=== PATIENT | male | born 1995 | race Hispanic/Latino ===

== ENCOUNTER 2017-05-09 00:37 | Emergency (ER) | payer OTHER ==
[~2017-05-09] VITALS: Ht 177.8 cm; Wt 79.5 kg
[2017-05-09 00:48] VITALS: BP 130/72
[2017-05-09] MEDS ORDERED: CEFD1CAP8 PO (01:46)
== END 2017-05-09 02:16 | disposition home or self-care (01) ==
LOC: M ED 00:37
DX: J01.90 Acute sinusitis, unspecified (principal)

== ENCOUNTER 2019-06-10 02:19 | Emergency (ER) | payer OTHER ==
[~2019-06-10] VITALS: Ht 177.8 cm; Wt 84.0 kg
[~2019-06-10 02:19] MED LIST: CEFD1CAP8 PO
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
[2019-06-10] MEDS ORDERED: ACETAMINOPHEN TAB 650MG DOSE (2X325MG) PO ONE (04:00)
[2019-06-10 04:41] VITALS: BP 109/58
== END 2019-06-10 04:42 | disposition home or self-care (01) ==
LOC: M ED 02:19
DX: Z04.71 Encounter for examination and observation following alleged adult physical abuse (principal); J01.00 Acute maxillary sinusitis, unspecified; F17.200 Nicotine dependence, unspecified, uncomplicated; F10.10 Alcohol abuse, uncomplicated